=== PATIENT | female | born 1980 | race Two or more races ===

== ENCOUNTER 2018-04-05 08:54 | Emergency (ER) | payer MEDICAID ==
--- NOTE | 2018-04-05 09:07 | EDPHY ---
H & P Stated Complaint: Chest pain, palpitations, SOB since last night Time Seen by Provider: 04/05/18 08:57 HPI/ROS: CHIEF COMPLAINT: Chest pain, palpitations, dyspnea, mild headache HISTORY OF PRESENT ILLNESS: The patient presents to the ED with a 1 day history of chest pain, palpitations, slight shortness of breath, nausea, fatigue and a slight headache. The patient does report she experiences chronic stress and anxiety. She denies significant past medical history including hypertension diabetes hyperlipidemia or smoking. The patient denies any pleuritic chest pain. She denies asymmetric calf pain or swelling. She denies any fever cough or congestion. Patient does complain of mild associated dysuria. She denies any fever or flank pain. REVIEW OF SYSTEMS: A comprehensive 10 point review of systems is otherwise negative aside from elements mentioned in the history of present illness. Source: Patient Exam Limitations: No limitations - Personal History LMP (Females 10-55): 22-28 Days Ago Current Tetanus/Diphtheria Vaccine: Unsure Current Tetanus Diphtheria and Acellular Pertussis (TDAP): Unsure - Medical/Surgical History Hx Asthma: No Hx Chronic Respiratory Disease: No Hx Diabetes: No Hx Cardiac Disease: No Hx Renal Disease: No Hx Cirrhosis: No Hx Alcoholism: No Hx HIV/AIDS: No Hx Splenectomy or Spleen Trauma: No Other PMH: anxiety - Social History Smoking Status: Never smoked - Physical Exam Exam: General Appearance: Alert, slightly anxious Eyes: Pupils equal and round no pallor or injection ENT, Mouth: Mucous membranes moist Respiratory: There are no retractions, lungs are clear to auscultation Cardiovascular: Regular rate and rhythm Gastrointestinal: Abdomen is soft and nontender, no masses, bowel sounds normal Neurological: A&O, normal motor function, normal sensory exam, normal cranial nerves Skin: Warm and dry, no rashes Musculoskeletal: Neck is supple nontender Extremities: symmetrical, full range of motion Constitutional: Initial Vital Signs Temperature (C) 36.8 C 04/05/18 08:57 Heart Rate 90 04/05/18 08:57 Respiratory Rate 18 04/05/18 08:57 Blood Pressure 123/69 H 04/05/18 08:57 O2 Sat (%) 97 04/05/18 08:57 O2 Delivery Mode Room Air Allergies/Adverse Reactions: No Known Allergies Allergy (Unverified 04/05/18 08:57) Home Medications: Medication Instructions Recorded NK [No Known Home Meds] 04/05/18 Medical Decision Making - Diagnostics EKG Interpretation: EKG: Complete interpretation has been separately recorded in the [email or web address] archive. Summary impression: Sinus rhythm, rate 81 ED Course/Re-evaluation: The patient presents to the ED for evaluation of an episode of atypical chest pain. The patient does admit that she is under some stress and anxiety. The patient's EKG demonstrates no evidence of ischemia and the patient's troponin is normal. She has no risk factors for heart disease and I doubt ACS as an acute presentation today. Patient did endorse symptoms of mild dyspnea. Her D-dimer is negative which I feel adequately excludes pulmonary embolism in this low risk by Wells criteria patient. The patient did have some complaints of abdominal discomfort. Her GI labs are within normal limits and her abdominal exam is reassuring. The patient also had symptoms of dysuria however her urinalysis demonstrates no evidence of an infection. The patient was given IV Toradol in the emergency department. I re-evaluated the patient at 11:00 a.m.. I do feel it is reasonable to have her continue NSAIDs as she may have some component of pleurisy versus costochondritis. Patient has been advised to follow up with her regular physician for any unimproved symptoms. She should return to the ED for markedly worsening symptoms or other concerns. Differential Diagnosis: Differential diagnosis considered includes pulmonary embolism, dyspepsia, myocardial infarction, pericarditis, pneumonia - Data Points Laboratory Results: Laboratory Results 04/05/18 09:22 04/05/18 09:22 04/05/18 04/05/18 04/05/18 10:05 10:00 09:22 WBC RBC Hgb Hct MCV MCH MCHC RDW Plt Count MPV Neut % (Auto) Lymph % (Auto) [place] % (Auto) Eos % (Auto) Baso % (Auto) Nucleat RBC Rel Count Absolute Neuts (auto) Absolute Lymphs (auto) Absolute Monos (auto) Absolute Eos (auto) Absolute Basos (auto) Absolute Nucleated RBC Immature Gran % Immature Gran # D-Dimer < 0.27 ug/mLFEU ug/mLFEU (0.00-0.50) Sodium Potassium Chloride Carbon Dioxide Anion Gap BUN Creatinine Estimated GFR Glucose Calcium Total Bilirubin Conjugated Bilirubin Unconjugated Bilirubin AST ALT Alkaline Phosphatase Troponin I Total Protein Albumin Lipase Beta HCG, Qual NEGATIVE Urine Color PALE YELLOW Urine Appearance CLEAR Urine pH 6.0 (5.0-7.5) Ur Specific [place] 1.005 (1.002-1.030) Urine Protein NEGATIVE (NEGATIVE) Urine Ketones NEGATIVE (NEGATIVE) Urine Blood 1+ H (NEGATIVE) Urine Nitrate NEGATIVE (NEGATIVE) Urine Bilirubin NEGATIVE (NEGATIVE) Urine Urobilinogen NEGATIVE EU EU (0.2-1.0) Ur Leukocyte Esterase NEGATIVE (NEGATIVE) Urine RBC 1-3 /hpf /hpf (0-3) Urine WBC 1-3 /hpf /hpf (0-3) Ur Epithelial Cells TRACE /lpf /lpf (NONE-1+) Urine Glucose NEGATIVE (NEGATIVE) 04/05/18 04/05/18 09:22 09:22 WBC 4.86 10^3/uL 10^3/uL (3.80-9.50) RBC 4.42 10^6/uL 10^6/uL (4.18-5.33) Hgb 13.3 g/dL g/dL (12.6-16.3) Hct 38.3 % % (38.0-47.0) MCV 86.7 fL fL (81.5-99.8) MCH 30.1 pg pg (27.9-34.1) MCHC 34.7 g/dL g/dL (32.4-36.7) RDW 11.8 % % (11.5-15.2) Plt Count 234 10^3/uL 10^3/uL (150-400) MPV 10.4 fL fL (8.7-11.7) Neut % (Auto) 50.4 % % (39.3-74.2) Lymph % (Auto) 36.4 % % (15.0-45.0) [place] % (Auto) 10.5 % % (4.5-13.0) Eos % (Auto) 1.9 % % (0.6-7.6) Baso % (Auto) 0.8 % % (0.3-1.7) Nucleat RBC Rel Count 0.0 % % (0.0-0.2) Absolute Neuts (auto) 2.45 10^3/uL 10^3/uL (1.70-6.50) Absolute Lymphs (auto) 1.77 10^3/uL 10^3/uL (1.00-3.00) Absolute Monos (auto) 0.51 10^3/uL 10^3/uL (0.30-0.80) Absolute Eos (auto) 0.09 10^3/uL 10^3/uL (0.03-0.40) Absolute Basos (auto) 0.04 10^3/uL 10^3/uL (0.02-0.10) Absolute Nucleated RBC 0.00 10^3/uL 10^3/uL (0-0.01) Immature Gran % 0.0 % % (0.0-1.1) Immature Gran # 0.00 10^3/uL 10^3/uL (0.00-0.10) D-Dimer Sodium 139 mEq/L mEq/L (135-145) Potassium 4.0 mEq/L mEq/L (3.3-5.0) Chloride 106 mEq/L mEq/L (97-110) Carbon Dioxide 22 mEq/l mEq/l (22-31) Anion Gap 11 mEq/L mEq/L (6-14) BUN 16 mg/dL mg/dL (7-23) Creatinine 0.6 mg/dL mg/dL (0.6-1.0) Estimated GFR > 60 Glucose 92 mg/dL mg/dL (70-100) Calcium 9.6 mg/dL mg/dL (8.5-10.4) Total Bilirubin 0.4 mg/dL mg/dL (0.1-1.4) Conjugated Bilirubin 0.2 mg/dL mg/dL (0.0-0.5) Unconjugated Bilirubin 0.2 mg/dL mg/dL (0.0-1.1) AST 16 IU/L IU/L (14-46) ALT 20 IU/L IU/L (9-52) Alkaline Phosphatase 44 IU/L IU/L (38-126) Troponin I < 0.012 ng/mL ng/mL (0.000-0.034) Total Protein 7.7 g/dL g/dL (6.3-8.2) Albumin 4.6 g/dL g/dL (3.5-5.0) Lipase 99 IU/L IU/L (23-300) Beta HCG, Qual Urine Color Urine Appearance Urine pH Ur Specific [place] Urine Protein Urine Ketones Urine Blood Urine Nitrate Urine Bilirubin Urine Urobilinogen Ur Leukocyte Esterase Urine RBC Urine WBC Ur Epithelial Cells Urine Glucose Medications Given: Discontinued Medications Sodium Chloride (Ns) 1,000 mls @ 0 mls/hr IV EDNOW ONE; Wide Open PRN Reason: Protocol Stop: 04/05/18 09:32 Last Admin: 04/05/18 09:53 Dose: 1,000 mls Ketorolac Tromethamine (Toradol) 30 mg IVP EDNOW ONE Stop: 04/05/18 09:42 Last Admin: 04/05/18 09:54 Dose: 30 mg Departure - Departure Disposition: Home, Routine, Self-Care Clinical Impression: Chest pain Condition: Good Instructions: Chest Pain (ED) Additional Instructions: 1. Take Ibuprofen or Motrin 600 mg by mouth three times a day. 2. The workup in the emergency department today demonstrates no significant abnormalities. 3. Please return to the ED for markedly worsening symptoms or other concerns. 4. Please schedule a follow-up appointment with your primary care provider for a recheck within the week. Referrals: Marina Hernández MD [Primary Care Provider] - As per Instructions
--- NOTE | 2018-04-05 09:17 | CPEKG ---
Test Reason : OPEN Blood Pressure : / mmHG Vent. Rate : 081 BPM Atrial Rate : 082 BPM P-R Int : 133 ms QRS Dur : 083 ms QT Int : 362 ms P-R-T Axes : 065 053 051 degrees QTc Int : 421 ms Sinus rhythm Confirmed by Herbert Mckenzie ([id number]) on 04/05/2018 9:17:30 AM Referred By: Confirmed By:Herbert Mckenzie
[2018-04-05] MEDS ORDERED: NS 1,000 ML IV ONE (09:31)
[2018-04-05 09:33] LABS: PLATELET COUNT 234 10^3/uL (150-400)
[2018-04-05] MEDS ORDERED: KETOROLAC 30 MG/1 ML SDV IVP ONE (09:41)
[2018-04-05 11:24] VITALS: BP 111/60
== END 2018-04-05 11:28 | disposition home or self-care (01) ==
DX: R07.9 Chest pain, unspecified (principal); F41.9 Anxiety disorder, unspecified; E86.9 Volume depletion, unspecified
CPT/HCPCS: 96374; J1885